=== PATIENT | female | born 1990 | race Caucasian/White ===

== ENCOUNTER 2016-10-24 21:20 | Inpatient (IN) | payer BC ==
[2016-10-24] MEDS ORDERED: FENTANYL CITRATE 50 MCG/ML SOL IV PRN (21:58)
[2016-10-24] MEDS ORDERED: METHYLERGONOVINE MALEATE 0.2 MG/ML SOL IM PRN (21:58)
[2016-10-24] MEDS ORDERED: CARBOPROST 250 MCG/ML SOL IM PRN (21:58)
[2016-10-24] MEDS ORDERED: MEPIVACAINE HCL 1% MPF 30 ML SOL INFIL PRN (21:58)
[2016-10-24] MEDS ORDERED: OXYTOCIN 10000 MU/ML SOL IM PRN (21:58)
[2016-10-24] MEDS ORDERED: AMPICILLIN 1 GM PDS 2 GM in SODIUM CHLORIDE 0.9% 100 ML 100 ML IV SCH (22:00)
[2016-10-24] MEDS: SODIUM CHLORIDE 0.9% FLUSH 10 ML SOL IV SCH (22:00)
[2016-10-24 22:06] LABS: BASOPHILS % (AUTO) 0 % (0-3); EOSINOPHILS % (AUTO) 0 % (0-9); HEMATOCRIT 37 % (35-47); MEAN CORPUSCULAR HGB CONC 35.6 gm/dl (32.0-36.0); MEAN CORPUSCULAR VOLUME 84 fL (81-99); MONOCYTES % (AUTO) 6.2 % (0-12); NEUTROPHILS % (AUTO) 78.9 % (37-80)
[2016-10-24] MEDS ORDERED: AMPICILLIN 1 GM PDS ONE ×2 (22:11)
[2016-10-24] MEDS: LACTATED RINGERS 1,000 ML IV PRN ×2 (22:14→22:40)
[2016-10-24] MEDS ORDERED: MORPHINE SULFATE 0.5 MG/ML SOL ONE (22:28)
[2016-10-25] MEDS ORDERED: BENZOCAINE/MENTHOL 1 SPR TOP PRN (00:04)
[2016-10-25] MEDS ORDERED: FLEET ENEMA PR PRN (00:04)
[2016-10-25] MEDS ORDERED: TEMAZEPAM 15MG 15 MG CAP PO PRN (00:04)
[2016-10-25] MEDS ORDERED: BISACODYL 10 MG SUP PR PRN (00:04)
[2016-10-25] MEDS ORDERED: WITCH HAZEL 1 EA PAD TOP PRN (00:04)
[2016-10-25] MEDS ORDERED: APAP/HYDROCODONE 325/5 TAB PO PRN (00:04)
[2016-10-25] MEDS ORDERED: METHYLERGONOVINE MALEATE 0.2 MG TAB PO PRN (00:04)
[2016-10-25] MEDS ORDERED: AMPICILLIN 1 GM PDS 1 GM in SODIUM CHLORIDE 0.9% 100 ML 100 ML IV SCH (02:00)
[2016-10-25] MEDS: IBUPROFEN 600 MG TAB PO PRN (05:36)
[2016-10-25] MEDS: SODIUM CHLORIDE 0.9% FLUSH 10 ML SOL IV SCH ×5 (05:38→23:38)
[2016-10-25] MEDS ORDERED: DIPHENHYDRAMINE 50 MG/ML SOL IV PRN (06:09)
[2016-10-25] MEDS: DOCUSATE SODIUM 100 MG SGL PO SCH ×2 (09:31→20:20)
[2016-10-25] MEDS ORDERED: NALOXONE HYDROCHLORIDE 0.4 MG/ML SOL IV PRN (11:30)
[2016-10-25] MEDS: SODIUM CHLORIDE 0.9% FLUSH 10 ML SOL IV PRN ×2 (13:00→16:11)
[2016-10-26] MEDS: SODIUM CHLORIDE 0.9% FLUSH 10 ML SOL IV SCH ×2 (07:06→15:27)
[2016-10-26] MEDS: IBUPROFEN 600 MG TAB PO PRN ×2 (08:57→16:23)
[2016-10-26] MEDS: DOCUSATE SODIUM 100 MG SGL PO SCH (08:57)
[2016-10-26 09:23] VITALS: O2SAT 98
[2016-10-26 16:23] VITALS: BP 121/84; PULSE 86; RESP 20; TEMP 97
== END 2016-10-26 19:25 | disposition home or self-care (01) | DRG 560 ==
LOC: OB 21:20 → OBSVTOIN 21:20 → OB 10-25 14:27
PROVIDERS: ADMIT Family Medicine; ATTEND Family Medicine
PROC: 10907ZC Drainage of Amniotic Fluid, Therapeutic from Products of Conception, Via Natural or Artificial Opening (ICD-10-PCS; principal; 2016-10-24)
PROC: 10E0XZZ Delivery of Products of Conception, External Approach (ICD-10-PCS; 2016-10-24)
DX: O99.824 Streptococcus B carrier state complicating childbirth (principal); Z3A.39 39 weeks gestation of pregnancy; Z37.0 Single live birth
CPT/HCPCS: 36415; 59025; 85018; 85025; J0290; J0670; J1200; J2275; J2310; J2590; J3010